=== PATIENT | male | born 1945 ===

== ENCOUNTER → 2019-04-18 | Outpatient (CLI) | payer OTHER ==
--- NOTE | 2019-04-18 14:51 | 2DMMODE ---
[facility] [place] [address] 2 D/M-MODE ECHOCARDIOGRAM Name: KUNAL BUCK Room #: [facility]#: [id number] ������������� Admission: 04/18/19 ������������� Attend Phys: Compa Villarreal MD Discharge: ��� ������������� ��� Date of : 41 Date of Service: 04/18/19 1451 �� Report #: [id number] �������� ��������������������������������������������[id number] THIS REPORT FOR: //name// APPROVED REPORT Study performed: 04/18/2019 13:56:05 EXAM: Comprehensive 2D, Doppler, and color-flow Echocardiogram Patient Location: Out-Patient Status: routine BSA: 2.19 HR: 72 bpm BP: 125/73 mmHg Other Information Study Quality: Good/no subcostal window. Indications CAD Hx: stents, HTN, HLP. 2D Dimensions RVDd: 34.80 mm IVSd: 10.03 (7-11mm) LVOT Diam: 20.41 (18-24mm) LVDd: 45.26 mm PWd: 10.25 (7-11mm) Ascending Ao: 34.13 (22-36mm) LVDs: 28.64 (25-40mm) Aortic Root: 33.62 mm Volumes Left Atrial Volume (Systole) Single Plane 4CH: 77.60 mL Single Plane 2CH: 63.85 mL LA ESV Index: 38.00 mL/m2 Aortic Valve AoV Peak Lucas.: 1.91 m/s AO Peak Gr.: 14.52 mmHg LVOT Max P.55 mmHg LVOT Max V: 1.37 m/s STEFFI Vmax: 2.36 cm2 Mitral Valve E/A Ratio: 0.8 MV Decel. Time: 329.80 ms MV E Max Lucas.: 0.60 m/s [facility] [address] [place] [address] 2 D/M-MODE ECHOCARDIOGRAM Name: KUNAL BUCK Room #: [facility]#: [id number] ������������� Admission: 04/18/19 ������������� Attend Phys: Compa Villarreal MD Discharge: ��� ������������� ��� Date of : 41 Date of Service: 04/18/19 1451 �� Report #: [id number] �������� ��������������������������������������������[id number] MV A Lucas.: 0.78 m/s MV PHT: 95.64 ms IVRT: 83.04 ms Pulmonary Valve PV Peak Lucas.: 1.02 m/s PV Peak Gr.: 4.13 mmHg Pulmonary Vein P Vein S: 0.59 m/s P Vein A: 0.27 m/s P Vein D: 0.35 m/s P Vein A Dur.: 78.4 msec P Vein S/D Ratio: 1.69 Tricuspid Valve TR Peak Lucas.: 2.26 m/s TR Peak Gr.: 20.41 mmHg Left Ventricle The left ventricle is normal size. There is normal LV segmental wall motion. There is normal left ventricular wall thickness. Left ventricular systolic function is normal. LVEF is 60-65%. Mild diastolic dysfunction is present (impaired relaxation pattern). Right Ventricle The right ventricle is normal size. The right ventricular systolic function is normal. Atria Left atrium is mildly dilated. The right atrium size is normal. Aortic Valve Aortic valve is trileaflet, mildly thickened. No aortic regurgitation is present. There is no aortic valvular stenosis. Mitral Valve The mitral valve is normal in structure. There is no mitral valve regurgitation noted. No evidence of mitral valve stenosis. Tricuspid Valve The tricuspid valve is normal in structure. Trace tricuspid regurgitation. Estimated PAP is 20mmHg plus the right atrial pressure. Pulmonic Valve The pulmonary valve is normal in structure. Trace pulmonic [address] [address] 2 D/M-MODE ECHOCARDIOGRAM Name: KUNAL BUCK Room #: [facility]#: [id number] ������������� Admission: 04/18/19 ������������� Attend Phys: Compa Villarreal MD Discharge: ��� ������������� ��� Date of : 41 Date of Service: 04/18/19 1451 �� Report #: [id number] �������� ��������������������������������������������[id number] regurgitation. Great Vessels The aortic root is normal in size. The ascending aorta is normal in size. IVC is not well visualized. Pericardium There is no pericardial effusion. <Conclusion> The left ventricle is normal size. LVEF is 60-65%. Left atrium is mildly dilated. Aortic valve is trileaflet, mildly thickened. The mitral valve is normal in structure. The tricuspid valve is normal in structure. Trace tricuspid regurgitation. Estimated PAP is 20mmHg plus the right atrial pressure. The pulmonary valve is normal in structure. Trace pulmonic regurgitation. There is no pericardial effusion. ��������������������������������������������� <ELECTRONICALLY SIGNED> ���������������������������������������� By: Heladio Bunch MD ��������������������������������������������� 04/18/19 1451 1451 [id number] Heladio Bunch MD /INF
== END ==
LOC: CV 13:45
DX: I25.10 Atherosclerotic heart disease of native coronary artery without angina pectoris (principal); I10 Essential (primary) hypertension; E78.5 Hyperlipidemia, unspecified; Z95.5 Presence of coronary angioplasty implant and graft